=== PATIENT | female | born 1960 | race Caucasian/White ===

== ENCOUNTER → 2020-09-03 09:31 | Outpatient (CLI) | payer OTHER, SELFPAY ==
--- NOTE | ~2020-09-03 | XR_ITS ---
EXAMINATION: XR knee RT min 4V DATE: 09/03/2020 11:51 INDICATION: Osteoarthritis of right knee with effusion. Right knee pain. TECHNIQUE: 4 views of right knee standing were obtained. COMPARISON: None. FINDINGS: There is varus angulation of the knee. No fracture. There is severe osteoarthritis of media l compartment, mild osteoarthritis of lateral compartment, and moderate osteoarthritis of patellofemo ral compartment. There is a moderate-sized knee joint effusion. IMPRESSION: 1. Severe right knee osteoarthritis. 2. Moderate-sized right knee joint effusion. Reviewed, dictated and finalized at location A.
== END ==
PROVIDERS: PCP Family Medicine Adolescent Medicine; Visit Provider Family Medicine Adolescent Medicine
DX: M17.11 Unilateral primary osteoarthritis, right knee (principal); M25.461 Effusion, right knee
CPT/HCPCS: 73564

== ENCOUNTER → 2022-01-27 08:44 | Outpatient (CLI) | payer OTHER, SELFPAY ==
--- NOTE | ~2022-01-27 | MM_ITS ---
EXAMINATION: MM screening [facility] BI w chance HISTORY: Screening mammogram TECHNIQUE: Craniocaudal and mediolateral oblique 3-D tomosynthesis images were obtained and synthetic 2-D images were generated. CAD analysis was submitted and interpreted. COMPARISON: 04/04/2017, 02/15/2017 BREAST PARENCHYMAL COMPOSITION: The breasts are extremely dense, which lowers the sensitivity of mamm ography. FINDINGS: No suspicious mass, calcification, or architectural distortion are identified in either [place] ast to suggest malignancy. There has been no suspicious interval change. IMPRESSION: 1. No mammographic evidence of malignancy. 2. Recommend routine screening mammography in one year. BI-RADS Category 1: Negative Reviewed, dictated and finalized at location A. 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
== END ==
PROVIDERS: PCP Family Medicine Adolescent Medicine; Visit Provider Obstetrics & Gynecology
DX: Z12.31 Encounter for screening mammogram for malignant neoplasm of breast (principal)
CPT/HCPCS: 77063; 77067

== ENCOUNTER 2023-05-24 12:19 | Outpatient (CLI) | payer OTHER, SELFPAY ==
--- NOTE | ~2023-05-24 | MM_ITS ---
EXAMINATION: MM screening [facility] BI w chance HISTORY: Screening TECHNIQUE: Craniocaudal and mediolateral oblique 3-D tomosynthesis images were obtained and synthetic 2-D images were generated. CAD analysis was submitted and interpreted. COMPARISON: 01/27/2022 BREAST PARENCHYMAL COMPOSITION: Dense: The breasts are extremely dense, which lowers the sensitivity of mammography.. FINDINGS: There is no evidence of suspicious mass, calcification, or architectural distortion to sugg est malignancy in either breast. There has been no suspicious interval change. IMPRESSION: 1. No mammographic evidence of malignancy. 2. Recommend routine screening mammography in one year. BI-RADS Category 1: Negative Reviewed, dictated and finalized at location A.
== END 2023-05-24 12:20 ==
LOC: MICIMG 12:21
PROVIDERS: PCP Obstetrics & Gynecology; Visit Provider Obstetrics & Gynecology
DX: Z12.31 Encounter for screening mammogram for malignant neoplasm of breast (principal)
CPT/HCPCS: 77063; 77067

== ENCOUNTER 2024-07-27 07:15 | Outpatient (CLI) | payer OTHER, SELFPAY ==
--- NOTE | ~2024-07-27 | MM_ITS ---
EXAMINATION: MM screening [facility] BI w chance HISTORY: Screening TECHNIQUE: Craniocaudal and mediolateral oblique 3-D tomosynthesis images were obtained and synthetic 2-D images were generated. CAD analysis was submitted and interpreted. COMPARISON: 05/24/2023 through 02/15/2017. BREAST PARENCHYMAL COMPOSITION: The breasts are extremely dense, which lowers the sensitivity of mamm ography. FINDINGS: There is no evidence of suspicious mass, calcification, or architectural distortion to sugg est malignancy in either breast. There has been no suspicious interval change. IMPRESSION: 1. No mammographic evidence of malignancy. 2. Recommend routine screening mammography in one year. BI-RADS Category 1: Negative Reviewed, dictated and finalized at location B.
== END 2024-07-27 07:16 | disposition home or self-care (01) ==
LOC: MICIMG 07:16
PROVIDERS: PCP Family Medicine Adolescent Medicine; Visit Provider Obstetrics & Gynecology
DX: Z12.31 Encounter for screening mammogram for malignant neoplasm of breast (principal)
CPT/HCPCS: 77063; 77067

== ENCOUNTER 2024-11-04 16:38 | Emergency (ER) | payer OTHER, SELFPAY ==
--- NOTE | ~2024-11-04 | XR_ITS ---
EXAMINATION: XR hand RT min 3V, 11/04/2024 17:18 CDT HISTORY: hand/finger injury COMPARISON: No comparisons available. Findings: Slightly displaced fracture of the proximal phalanx third digit. Moderate degenerative changes of the distal interphalangeal joints. Soft tissue swelling. Impression: Fracture detailed above Reviewed, dictated and finalized at location A. Impression: Fracture detailed above
--- OUTSIDE RECORDS SUMMARY | 2024-11-04 16:42 | XMS_ITS | Clinical Summary ---
Author Organization [facility] Address [address] [place] [address] Care Team Providers Care Bucket Operator Name Role Phone Raj Kirby MD Primary Care Prov ider Allergies No known active allergies Medications predniSONE (DELTASONE) 10 mg tablet 0 9 Active fluticasone propionate (FLONASE) 50 mcg/actuation nasal sprayIndication s:Acute otitis media with effusion of left ear Administer 2 sprays into each nostril 2 (two) times a day 16 g 11 9 Active Active Problems Problem Noted Date Diagnosed Date Acute otitis media with effusion of left ear Assessment & Plan (03/05/2019 10:52 AM SEWER CONTRACTOR): Avoid ear cleaning techniques, if ears feel full or hearing loss occurs, please call Assessment & Plan (02/08/2019 9:26 AM SEWER CONTRACTOR): Cefdinir with a meal daily Probiotic at a different meal Flonase 2 sprays into each nostril while looking down over the sink, do not sniff in or blow nose after use twice daily Call if need for Diflucan occurs Follow up in 3-4 weeks with Hearing test right before follow up consider ear tube if no improvement in left ear effusion Lumbago 04/04/2013 Pain of lower extremity 04/04/2013 Immunizations Immunization Administration Dates Next Due Influenza, Trivalent, Preservative Free, Intramu scular 01/11/2013 Surgical History Surgery Date Site/Laterality Comments FOOT SURGERY Foot Surgery - (Added by TW Conv) Family History Medical History Relation Name Comments Colon cancer Other 1 Family history of colon cancer - Relation: Grandmother (Added by TW Conv) Colon cancer Other 2 Family history of colon cancer - Relation: Uncle (Added by TW Conv) Relation Name Status Comments Other 1 Other 2 Social History Tobacco Use Types Packs/Day Years Used Date Smoking Tobacco: Every Day Smokeless Tobacco: Former Comments:Cigars Alcohol Use Standard Drinks/Week Comments Not Currently 0 (1 standard drink = 0.6 oz pur e alcohol) Personal Safety Answer Date Recorded Getting School Help Needed Not on file 05/06 Comments Unknown Sex and Gender Information Value Date Recorded Sex Assigned at Not on file Legal Sex Female 4:56 AM SEWER CONTRACTOR Gender Identity Not on file Sexual Orientation Not on file Obstetrics History Last Filed Vital Signs Vital Sign Reading Time Taken Comments Blood Pressure 114/76 03/05/2019 10:39 AM SEWER CONTRACTOR Pulse 66 03/05/2019 10:39 AM SEWER CONTRACTOR Temperature 36.7 C (98 F) 03/05/2019 10:39 AM SEWER CONTRACTOR Respiratory Rate - - Oxygen Saturation 100% 06/16/2016 2:17 PM CDT Inhaled Oxygen Concentration - - Weight 73 kg (161 lb) 03/05/2019 10:39 AM SEWER CONTRACTOR Height 167.6 cm (5' 6) 03/05/2019 10:39 AM SEWER CONTRACTOR Body Mass Index 25.99 03/05/2019 10:39 AM SEWER CONTRACTOR Plan of Treatment Not on file Insurance [facility] AETNA SIGNATURE AETNA SIG [id number] Care Teams Bucket Operator Relationship Specialty Start Date End Date Raj Kirby MD PCP - General Family Medicine 02/06/19
--- OUTSIDE RECORDS SUMMARY | 2024-11-04 16:42 | XMS_ITS | Clinical Summary ---
Author Organization [facility] Address [address] [place] [address] Care Team Providers Care Hide Selector Name Role Phone Raj Kirby MD Primary Care Provider + Source Comments [facility],non-owned Affiliates and Associated Physician Practices is amultiple site organization consisting of ambulatory clinics and hospital sitesin [place], [place], [place] and [place]. This disclosure is being madepursuant to the Care Everywhere program and may not contain all information available regarding this patient. Last updated 17.[facility] Allergies No known active allergies Medications * Be aware that medications may not be up to date on this document. Alwaysverify current medications with the patient. aspirin-acetami nophen-caffeine 250-250-65 MG tablet Take 2 tablets by mouth once daily Active ibuprofen (MOTRIN) 800 MG tablet Take 800 mg by mouth every 6 hours as needed for Pain Active cefdinir (OMNICEF) 300 MG capsule 02/08/2019 Active SUMAtriptan (IMITREX) 20 MG/ACT nasal spray U 1 SPRAY IN 1 NOS FOR MIGRAINE DIRECTED 09/19/2018 Active Active Problems No known active problems Social History Tobacco Use Types Packs/Day Years Used Date Smoking Tobacco: Every Day Smokeless Tobacco: Never Comments Unknown Sex and Gender Information Value Date Recorded Sex Assigned at Not on file Legal Sex Female 9:43 AM PHYSICIAN UNDERWRITER Gender Identity Not on file Sexual Orientation Not on file Last Filed Vital Signs Vital Sign Reading Time Taken Comments Blood Pressure - - Pulse - - Temperature - - Respiratory Rate - - Oxygen Saturation - - Inhaled Oxygen Concentration - - Weight 74.4 kg (164 lb) 04/26/2019 8:30 AM PHYSICIAN UNDERWRITER Height 167.6 cm (5' 6) 04/26/2019 8:30 AM PHYSICIAN UNDERWRITER Body Mass Index 26.47 04/26/2019 8:30 AM PHYSICIAN UNDERWRITER Plan of Treatment Health Maintenance Due Date Last Done Comments COLOGUARD (AGES 45-75) - COL ON CA SCREENING 1960 COLON MONITORING 1960 COLONOSCOPY - COLON CA SCREENING 1960 CT COLONOGRAPHY - COLON CA SCREENING 1960 Colorectal Cancer Screening 1960 FIT - COLON CA SCREENING 1960 FLEX SIG - COLON CA SCREENING 1960 LIPID TESTING 1960 MAMMOGRAM 1960 HIV SCREENING 10/09/1975 HEPATITIS C SCREENING 10/04/1978 DTAP/TDAP/TD VACCINES (1 - Tdap) 10/09/1979 PNEUMOCOCCAL VACCINE 50+ (1 of 1 - PCV) 2010 ZOSTER VACCINE (1 of 2) 2010 SCREENING FOR DIABETES 04/26/2019 DEPRESSION SCREENING 02/22/2024 COVID-19 VACCINE (1 - 2023-2 5 season) 2024 INFLUENZA VACCINE (#1) 2024 01/11/2013 Respiratory Syncytial Virus (RSV) Vaccine Pt: or over 60 yrs (1 - 1-dose 75+ series) 10/09/2035 HEPATITIS B VACCINE Aged Out No longe r eligible based on patient's age to complete this topic HIB VACCINE Aged Out No longer eligi ble based on patient's age to complete this topic HPV VACCINE Aged Out No longer eligi ble based on patient's age to complete this topic MENINGOCOCCAL (Group B) VACC INE SHARED DECISION-MAKING Aged Out No longer eligibl e based on patient's age to complete this topic MENINGOCOCCAL GROUPS A/C/Y/W VACCINE Aged Out No longer eligible b ased on patient's age to complete this topic Insurance AETNA AETNA Care Teams Hide Selector Relationship Specialty Start Date End Date Raj Kirby MD [address] [address] PCP - General 03/02/19
--- OUTSIDE RECORDS SUMMARY | 2024-11-04 16:42 | XMS_ITS | Clinical Summary ---
Author Organization [facility] Address Formerly [facility] [place] [address] Care Team Providers Care Compliance Program Manager Name Role Phone Raj Kirby MD Primary Care Provider [phone] Christofer Voss DPM Unavailable [phone] Allergies No known active allergies Medications etodolac 500 MG tablet Take 500 mg by mouth 2 (two) times daily as needed. 0 Active TURMERIC OR Take 2 tablets by mouth daily. Active MAGNESIUM OR Take 2 tablets by mouth daily. Magnesium L- Threonate Active probiotic capsule Take 1 capsule by mouth daily with breakfast. Active aspirin-acetami nophen-caffeine 250-250-65 MG tablet Take 2 tablets by mouth nightly. Active hydrocodone-leopoldo taminophen 5-325 MG tabletIndicatio ns:Acute Pain < 7 Day Supply Take 1 tablet by mouth every 6 (six) hours as needed for Pain. Indications: Acute Pain < 7 Day Supply 20 tablet 0 Active ibuprofen 800 MG tablet Take 1 tablet (800 mg total) by mouth every 8 (eight) hours as needed for Pain. 30 tablet 0 Active Social History Tobacco Use Types Packs/Day Years Used Date Smoking Tobacco: Some Days Cigars Smokeless Tobacco: Never Comments:4 mini cigars per d ay Alcohol Use Standard Drinks/Week Comments Yes 2 (1 standard drink = 0.6 oz pur e alcohol) Comments No Sex and Gender Information Value Date Recorded Sex Assigned at Not on file Legal Sex Female 7:05 PM CDT Gender Identity Not on file Sexual Orientation Not on file Last Filed Vital Signs Vital Sign Reading Time Taken Comments Blood Pressure 117/68 04/03/2019 10:36 AM REHABILITATION ENGINEER Pulse 55 04/03/2019 10:36 AM REHABILITATION ENGINEER Temperature 36.4 C (97.6 F) 04/03/2019 10:36 AM REHABILITATION ENGINEER Respiratory Rate 20 04/03/2019 10:36 AM REHABILITATION ENGINEER Oxygen Saturation 99% 04/03/2019 10:36 AM REHABILITATION ENGINEER Inhaled Oxygen Concentration - - Weight 71.9 kg (158 lb 8.2 oz) 04/03/2019 6:25 A M REHABILITATION ENGINEER Height 167.6 cm (5' 6) 04/03/2019 6:25 AM REHABILITATION ENGINEER Body Mass Index 25.58 04/03/2019 6:25 AM REHABILITATION ENGINEER Plan of Treatment Health Maintenance Due Date Last Done Comments Cervical Cancer Screening Pa p Smear (Age 30 to 64) Every 3 Years 1960 Colorectal Cancer Screening Colonoscopy (10 Years) 1960 Annual Physical 10/09/1963 Hepatitis C 1978 DTaP, Tdap and Td Vaccines ( 1 - Tdap) 10/09/1979 Pneumococcal Vaccine: 50+ Ye ars (1 of 2 - PCV) 10/09/1979 Cervical Cancer Screening Pa p with HPV Testing (Age 30 to 64) Every 5 Years 1990 Cervical Cancer Screening with HPV 1990 Mammogram Screening 2000 Zoster Vaccines (1 of 2) 2010 COVID-19 Vaccine (2023-2 5 season) 2024 RSV Immunization or 60+ Years (1 - 1-dose 75+ series) 10/09/2035 Meningococcal B Vaccine Aged Out No l onger eligible based on patient's age to complete this topic Meningococcal Vaccine Aged Out No beto keila eligible based on patient's age to complete this topic RSV Immunizations Under 20 Months Aged Out No longer eligible based on patient's age to complete this topic Medical Devices Implanted Type Area Wind Turbine Design Engineer Device Identifier Shelf Expiration Date Model / Serial / Lot Fuseforce Nitinol Staple Kit Implanted:Qty: 2 on 04/03/2019 by Christofer Voss DPM at [facility] Right: Foot Sano 04/11/2023 [id number] / / [id number] Medium Phalinx Implant Implanted:Qty: 1 on 04/03/2019 by Christofer Voss DPM at [facility] Right: Foot [employer] [id number] / / Snap Off Screw 2.0 X 12mm Implanted:Qty: 1 on 04/03/2019 by Christofer Voss DPM at [facility] Right: Foot [employer] [id number] / / 1.1mm K-Wire Implanted:Qty: 1 on 04/03/2019 by Christofer Voss DPM at [facility] Right: Foot [employer] [id number] / / Insurance Care Teams Compliance Program Manager Relationship Specialty Start Date End Date Raj Kirby MD [address] [place] [id number] PCP - General FAMILY PRACTICE 03/26/19 Christofer Voss DPM [address] [address] Referring Physician PODIATRY/SURGERY 03/27/19
[2024-11-04 16:48] VITALS: BP 97/70; PULSE 85; RESP 18; TEMP 36.6; O2SAT 96
--- NOTE | 2024-11-04 17:46 | ED.UPPEXIN ---
HPI - Extremity Injury (Upper) General Chief Complaint: Extremity Injury, Upper Stated Complaint: right hand finger injury Time Seen by Provider: 11/04/24 17:00 Source: patient Mode of arrival: ambulatory Limitations: no limitations History of Present Illness HPI narrative: Billy is a 64-year-old female patient presenting to the clinic today with complaints of a right hand middle finger injury that occurred on . She reports she was riding her medial and fell off and injured her finger. Has been resting, icing, and had the finger splinted. Finger is bruised and swollen. Is concerned that it may be broken. Related Data Home Medications ?Medication ?Instructions ?Recorded ?Confirmed ?Last Taken ?Type No Home Medications 11/04/24 11/04/24 Unknown History Allergies Allergy/AdvReac Type Severity Reaction Status Date / Time No Known Allergies Allergy Mild Verified 11/04/24 17:02 ON LICENSE OF [facility] Past Medical History Medical History History of osteoporosis Surgical History Surgical History History of back surgery (~2013) 2014 bulging disc. History of foot surgery (Unknown) total of 5 foot surgeries. Bone Spur, bunions, mortans, euroma, Hammer Aristides. History of tubal ligation (~1989) Family History Family History Unknown No problems noted. Grandparent Acute myocardial infarction Other Carcinoma of colon Grandparent Carcinoma of colon Father Diabetes mellitus Other Arthritis Social History Social History Smoking status: Current every day smoker Tobacco type: cigars Second hand tobacco smoke exposure: No Alcohol intake: current Drinks per week: 2 Alcohol use details: 2 drinks a week. Substance use: never Substance use type: does not use Do You Feel Safe in your Home?: Yes Lack of Transportation: No Lack of Food: Never True Current Housing: I Have Housing Concerned About Future Housing: No Difficulty Paying Gas/Electric Bills: No Difficulty Paying for Meds: No Currently Unemployed: No Education: Trade/Vocational Certificate Difficulty w/ Childcare or Family Care: No Living arrangements: with family Occupation/Education: retired Gender identity (if verbalized by the patient): Female Sexual Orientation (if Verbalized by the Patient): Straight or Heterosexual Spiritual care concerns: No Agree to blood products: Yes Comments At the time of my signature, I reviewed and agree with the nursing past medical, surgical, social, and family history. There is no relevant family history pertinent to the patient complaint. Exam Narrative: General: Well-developed, well nourished, in no apparent distress Head: Normocephalic, atraumatic. Cardio: Regular rate and rhythm, s1 and s2 normal, no murmur appreciated. Resp: Clear to auscultation bilaterally, no rhonchi, rales, wheezing or rubs. Musculoskeletal: No deformity, bruised and swelling of the right 3rd finger that is extending into the distal hand, tender to palpation over the right proximal 3rd finger, limited range of motion due to pain and swelling, muscle strength strong and equal, peripheral pulse strong, no edema, no cyanosis, normal gait and station Course Course Emergency Course: Portions of this record may have been created with voice recognition software. Level of Care: Express Care Visit Vital Signs Vital signs: Vital Signs Temperature 36.6 C 11/04/24 16:48 Pulse Rate 85 11/04/24 16:48 Respiratory Rate 18 11/04/24 16:48 Blood Pressure 97/70 L 11/04/24 16:48 Pulse Oximetry 96 11/04/24 16:48 Oxygen Delivery Room Air 11/04/24 16:48 Temperature 36.6 C 11/04/24 16:48 Pulse Rate 85 11/04/24 16:48 Respiratory Rate 18 11/04/24 16:48 Blood Pressure 97/70 L 11/04/24 16:48 Pulse Oximetry 96 11/04/24 16:48 Oxygen Delivery Room Air 11/04/24 16:48 Vital signs reviewed MDM - Extremity Injury (Upper) MDM Narrative Medical decision making narrative: At the time of visit patient is resting comfortably on the exam table. Patient appears to be nontoxic. Complaints of a right hand middle finger injury that occurred on . She reports she was riding her medial and fell off and injured her finger. Has been resting, icing, and had the finger splinted. Finger is bruised and swollen. Is concerned that it may be broken. On exam patient has bruising and swelling of the right 3rd finger that is extending into the distal hand, tender to palpation over the right proximal 3rd finger, limited range of motion due to pain and swelling, Right hand x-ray was ordered. Diagnostics: X-ray of the right 3rd finger was performed. X-ray shows a slightly displaced closed right 3rd proximal phalanx fracture. Plan: Patient has slightly displaced proximal right 3rd finger fracture. Metal finger splint was applied. Recommend follow-up with Dr. Fields. Contact his office in the morning to schedule appointment. Supportive measures were discussed with the patient and they voiced understanding discharge instructions and agrees to treatment plan. Return precautions reviewed Differential Diagnosis Differential diagnosis: Likely finger sprain, dislocation of finger and other (finger fracture) Imaging Data Radiologist's impression: ITS Impressions Hand X-Ray 11/04/24 17:32 Impression: Fracture detailed above Discharge Plan Discharge Clinical Impression: Fracture of proximal phalanx of finger Qualifiers: Encounter type: initial encounter Finger: middle finger Fracture type: closed Fracture alignment: displaced Laterality: right Qualified Code(s): S62.612A - Displaced fracture of proximal phalanx of right middle finger, initial encounter for closed fracture Patient Disposition: Home Condition: Stable Instructions: Antibiotic Form, Finger Fracture (ED) Additional Instructions: X-ray shows a closed nondisplaced right 3rd proximal phalanx fracture Rest, ice, elevate, and wear metal finger splint as discussed May remove metal finger splint to shower and then reapply. Tylenol/motrin for pain as discussed. Follow up with your PCP if symptoms persist more than 1 week. Follow-up with Dr. Fields- call office on Tuesday to schedule an appointment. Patient Language: Tamazight Prescriptions: No Action No Home Medications Follow-up/Referrals: Vivian Fields MD [Physician, Plastic Surgery] - 1 Day Referral Note: Closed nondisplaced right 3rd proximal phalanx fracture Clinical Impression: Fracture of proximal phalanx of finger Raj Kirby MD [Primary Care Provider, [facility]] Time of Disposition: 17:42 Quality NIHSS Nursing Documentation ED NIHSS nursing documentation: reviewed/agree
== END 2024-11-04 17:54 | disposition home or self-care (01) ==
PROVIDERS: Emergency Provider Nurse Practitioner Family; PCP Family Medicine Adolescent Medicine
DX: S62.612A Displaced fracture of proximal phalanx of right middle finger, initial encounter for closed fracture (principal); W19.XXXA Unspecified fall, initial encounter; F17.290 Nicotine dependence, other tobacco product, uncomplicated; M81.0 Age-related osteoporosis without current pathological fracture
CPT/HCPCS: 29130; 73130; 99214; G0463

== ENCOUNTER 2024-11-08 00:37 | Day surgery (SDC) | payer OTHER, SELFPAY ==
[2024-11-07 09:23] VITALS: BMI 23.4
--- NOTE | 2024-11-07 09:24 | PC.NURSE ---
Report to the Outpatient Waiting Room, entrance under the green pavilion located off [facility], at time _1115_ on date _[id number]_. Planned Procedure Time: 115pm__.? Time changes happen often and if your time is changed the preop area will call you the afternoon before. - You and your visitor will be asked to self-screen and do not enter if you have any COVID symptoms. Please call surgeon if you need to reschedule. - A mask is optional within the hospital at this time. Patients may have clear liquids (water, carbonated beverages, clear teas, apple juice) until 515am prior to surgery with a maximum of 20 ounces. Nothing to drink after 515am. - No food from midnight until time of surgery and no smoking, or chewing tobacco (or any form of nicotine). No chewing gum, candy or mints. Take only the following medications with a SIP of water on the morning of surgery: __None__Acetaminophen OK if need something for pain. DO NOT STOP ANY OF YOUR OTHER PRESCRIPTION MEDICATIONS PRIOR TO SURGERY EXCEPT THE FOLLOWING Hold all vitamins and supplements for 3 days per anesthesiologist. Medications to discontinue per physician Date to take last dose Please no make-up, nail persian, hairspray, perfume, deodorant, or body powder the day of surgery.? No jewelry (including any body piercings) or valuables the day of surgery, leave them at home.? Please take a shower or bath the night before, or the morning of, surgery with an antibacterial soap.? Wear comfortable, loose fitting clothing.? - Jewelry must be removed prior to entering the operating room.? Rings and piercings that are not removed may be cut off. - The hospital will not accept responsibility for valuables.? - Please leave all valuables, including medications, at home the day of surgery. If you are going home after surgery, a licensed substitute bus driver must drive you home.? - NO public transportation without another adult if you receive anesthesia. - We recommend that an adult stay with you for 24 hours following discharge. - We also recommend that you do not drive, make important decision, drink alcoholic beverages, or take any drugs that were not prescribed by your health care provider for at least 24 hours after your discharge time. Follow any additional instructions given to you from your surgeon. Telephone instructions given to __Marti__and asked if any additional questions and then verbalized understanding. Patient advised to call surgeon office or pre surgery nurse liaison [phone] if any additional questions.
--- NOTE | ~2024-11-08 | XR_ITS ---
EXAMINATION: XR surgery orthopedic DATE: 11/08/2024 15:05 INDICATION: Fixation of a fracture of the third proximal phalanx TECHNIQUE: 4 fluoroscopic images of the third digit at the right hand were obtained during procedure performed by Dr. Fields. Radiologist was not present for the imaging or procedure. The amount of fluoroscopy time used during this procedure was 0.2 minutes. Total DAP was 0.0535 Gycm^2. COMPARISON: Right hand radiographs dated 11/04/2024 FINDINGS: Images demonstrate percutaneous pin fixation spanning an oblique extra articular fracture of the right third proximal phalanx. On the dorsal palmar projection. No significant change in the approximately 2 mm separation of the fracture margins. Final image and lateral projection demonstrate a pair of additional likely percutaneous pins extending across the midportion of the diaphysis which appear likely foreshortened due to the plane of projection. No new fractures identified. 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 IMPRESSION: 1. Fluoroscopy utilized during percutaneous pin fixation of an oblique extra articular fracture of the third proximal phalanx. See procedure note for further detail. Reviewed, dictated and finalized at location A. IMPRESSION: 1. Fluoroscopy utilized during percutaneous pin fixation of an oblique extra ar ticular fracture of the third proximal phalanx. See procedure note for further detail.
--- OUTSIDE RECORDS SUMMARY | 2024-11-08 00:40 | XMS_ITS | Clinical Summary ---
Author Organization [facility] Address [address] [place] [address] Care Team Providers Care Chinese Teacher Name Role Phone Raj Kirby MD Primary Care Provider + Source Comments [facility],non-owned Affiliates and Associated Physician Practices is amultiple site organization consisting of ambulatory clinics and hospital sitesin [place], [place], [place] and [place]. This disclosure is being madepursuant to the Care Everywhere program and may not contain all information available regarding this patient. Last updated 17.[facility] Allergies No known active allergies Medications * [...] on file Legal Sex Female 9:43 AM CASSANDRA ARCHITECT Gender Identity Not on file Sexual Orientation Not on file Last Filed Vital Signs Vital Sign Reading Time Taken Comments Blood Pressure - - Pulse - - Temperature - - Respiratory Rate - - Oxygen Saturation - - Inhaled Oxygen Concentration - - Weight 74.4 kg (164 lb) 04/26/2019 8:30 AM CASSANDRA ARCHITECT Height 167.6 cm (5' 6) 04/26/2019 8:30 AM CASSANDRA ARCHITECT Body Mass Index 26.47 04/26/2019 8:30 AM CASSANDRA ARCHITECT Plan of Treatment Health Maintenance Due Date [...] this topic Insurance AETNA AETNA Care Teams Chinese Teacher Relationship Specialty Start Date End Date Raj Kirby MD [address] [address] PCP - General 03/02/19
--- OUTSIDE RECORDS SUMMARY | 2024-11-08 00:40 | XMS_ITS | Clinical Summary ---
Author Organization [facility] Address [facility] [place] [address] Care Team Providers Care Livestock Farmer Name Role Phone Raj Kirby MD Primary Care Provider [phone] Christofer Voss DPM Unavailable [phone] Allergies No known active allergies Medications [...] Comments Blood Pressure 117/68 04/03/2019 10:36 AM JOURNEYMAN MEAT CUTTER Pulse 55 04/03/2019 10:36 AM JOURNEYMAN MEAT CUTTER Temperature 36.4 C (97.6 F) 04/03/2019 10:36 AM JOURNEYMAN MEAT CUTTER Respiratory Rate 20 04/03/2019 10:36 AM JOURNEYMAN MEAT CUTTER Oxygen Saturation 99% 04/03/2019 10:36 AM JOURNEYMAN MEAT CUTTER Inhaled Oxygen Concentration - - Weight 71.9 kg (158 lb 8.2 oz) 04/03/2019 6:25 A M JOURNEYMAN MEAT CUTTER Height 167.6 cm (5' 6) 04/03/2019 6:25 AM JOURNEYMAN MEAT CUTTER Body Mass Index 25.58 04/03/2019 6:25 AM JOURNEYMAN MEAT CUTTER Plan of Treatment Health Maintenance Due Date [...] this topic Medical Devices Implanted Type Area Cap Blocker Device Identifier Shelf Expiration Date Model / Serial / Lot Fuseforce Nitinol Staple Kit Implanted:Qty: 2 on 04/03/2019 by Christofer Voss DPM at [facility] Right: Foot [employer] 04/11/2023 [id number] / / [id number] Medium Phalinx Implant Implanted:Qty: 1 on 04/03/2019 by Christofer Voss DPM at [facility] Right: Foot [employer] [id number] / / Snap Off Screw 2.0 X 12mm Implanted:Qty: 1 on 04/03/2019 by Christofer Voss DPM at [facility] Right: Foot [employer] [id number] / / 1.1mm K-Wire Implanted:Qty: 1 on 04/03/2019 by Christofer Voss DPM at [facility] Right: Foot [employer] [id number] / / Insurance Care Teams Livestock Farmer Relationship Specialty Start Date End Date Raj Kirby MD [address] [place] [id number] PCP - General FAMILY PRACTICE 03/26/19 Christofer Voss DPM [address] [address] Referring Physician PODIATRY/SURGERY 03/27/19
--- NOTE | 2024-11-08 06:58 | WPDHPUPDATE1 ---
History and Physical Update Update Date/Time: 11/08/24 06:58 Patient seen and examined in pre-operative holding area. No interval change in medical history or symptoms. Patient recalls previous discussion of benefits and alternatives to procedure. Continues to desire to proceed with closed possible open reduction and pinning right middle finger proximal phalanx fracture . Reviewed procedure, post-op expectations and risks including but not limited to bleeding, infection, injury to tendon/nerve/vessel, decreased hand function, stiffness, RSD, no change or worsening of symptoms, malunion, nonunion. I discussed the possible use of assistants and their participation in the case. Patient stated understanding and signed the consent form wishing to proceed.
--- NOTE | 2024-11-08 06:58 | W.PM.PROC2 ---
Procedure Note - Detailed Date of Procedure 11/08/24 Pre-op Diagnosis fx proximal phalanx right middle finger Post-op Diagnosis Same Procedure Performed right middle finger p1 crpp Surgeon Vivian Fields MD Animal Treatment Investigator ml newman pa-c Anesthesia MAC Description of Procedure INFORMED CONSENT: The patient was seen and examined and marked in the pre-op area.? The patient signed the consent form. PROCEDURE IN DETAIL:The patient taken back to OR on the stretcher in supine position. Time out performed with anesthesia, surgeon and staff agreeing on patient's name site and surgery to be performed SCDs were placed on the lower extremities and inflated. A tourniquet was placed on {right} upper extremity and antibiotics given IV After anesthesia administered sedation I injected {4}cc 1%lido with epi and 0.5% marcaine plain for digital block in the palm The?{right upper extremity}?was prepped and draped in sterile fashion the??{right upper extremity} was? exsanguinated with Esmarch bandage and tourniquet inflated to 250mmHg C-arm was draped and brought into the field. Closed reduction maneuvers were performed noting the ability to achieve adequate reduction of the fracture. I proceeded with placing a 0.045 K-wires in an anterograde crossing fashion across the fracture. Wire placement was verified and multiple views of fluoroscopy and noting adequate reduction of the fracture. I proceeded with placeing two more 0.045 k-wires in ulnar to radial direction perpendicular to fracture to improve compression. multiple views of fluoro verified placement and reduction. There was no scissoring to the digit. The pin sites were trimmed appropriately. A dressing of betadine soaked alcohol swabs were placed around the pins then, 4x4, balaji, and a dorsal splint in safe position was applied for patient safety, security, and comfort and secured with an leopoldo bandage after the tourniquet was let down noting the hand was warm and well perfused. The patient was then awaken from anesthesia and transferred to the recovery room in stable condition.? Complications - none EBL- 0cc Disposition - home in stable condition Ml Newman PA-C was essential for positionig, retraction, closure and dressing placement [facility] Billing Surgery - Charge Forward: Surgery Billing ([id number] for ml)
[2024-11-08 12:00] VITALS: BP 120/62; PULSE 70; RESP 16; TEMP 36.5; O2SAT 97
[2024-11-08] MEDS: LACTATED RINGERS 1,000 ML 30 ML IV CONT (12:00)
[2024-11-08] MEDS: ACETAMINOPHEN 500 MG TABLET 1000 MG PO (12:00)
--- NOTE | 2024-11-08 13:28 | WPDANESEPPF ---
Anes - Initial Pre Proc Eval Procedure: Operation Date: 11/08/24 13:15 Proposed Procedures p Right Middle Finger Closed Reduction Percutaneous Pinning, Possible Open Reduction Internal Fixation - Vivian Fields MD Date/Time: 11/08/24 13:28 Surgeon: Vivian Fields MD Pre Op Diagnosis: fx proximal phalanx right middle finger Patient Data Age: 64 Gender: F Height: 1.68 m Weight: 65.9 kg Allergies Allergy/AdvReac Type Severity Reaction Status Date / Time No Known Allergies Allergy Mild Verified 11/07/24 09:09 Home Medications ?Medication ?Instructions ?Recorded ?Confirmed ?Type calcium 500 mg (as 3 tablet PO DAILY 11/07/24 11/07/24 History carbonate)-vitamin D3 3.125 mcg (125 unit) tablet magnesium carb,citrate,oxide 500 mg PO DAILY 11/07/24 11/07/24 History (Magnesium Complex) cephalexin 500 mg capsule 500 mg PO Q12H #14 caps 11/08/24 Rx hydrocodone 5 mg-acetaminophen 325 1 tablet PO Q6H PRN pain #12 tabs 11/08/24 Rx mg tablet Patient hx anesthesia problems: post op nausea/vomiting Family hx anesthesia problems: none Results Review: All pre-operative results and documents have been reviewed as part of the pre-operative evaluation. [facility] Past Medical History Medical History History of osteoporosis Surgical History Surgical History History of tubal ligation (~1989) History of back surgery (~2013) 2014 bulging disc. History of foot surgery (Unknown) total of 5 foot surgeries. Bone Spur, bunions, mortans, euroma, Hammer Aristides. Family History Family History Unknown No problems noted. Grandparent Acute myocardial infarction Other Carcinoma of colon Grandparent Carcinoma of colon Father Diabetes mellitus Other Arthritis Social History Social History Smoking status: Current every day smoker Tobacco type: cigars Second hand tobacco smoke exposure: No Additional smoking assessment comments: Little bitty and 5 a day for 10 years. Alcohol intake: current Drinks per week: 5 Alcohol use details: 2 drinks a week. Substance use: never Substance use type: does not use Do You Feel Safe in your Home?: Yes Lack of Transportation: No Lack of Food: Never True Current Housing: I Have Housing Concerned About Future Housing: No Difficulty Paying Gas/Electric Bills: No Difficulty Paying for Meds: No Currently Unemployed: No Education: Trade/Vocational Certificate Difficulty w/ Childcare or Family Care: No Living arrangements: with family Occupation/Education: retired Gender identity (if verbalized by the patient): Female Sexual Orientation (if Verbalized by the Patient): Straight or Heterosexual Spiritual care concerns: No Agree to blood products: Yes Anes - Eval Final PreProcedure Day of Procedure 11/08/24 13:28 Patient weight: normal Lungs: normal air movement Airway: Mallampati scale class II and special considerations Neurological: alert and oriented Last oral intake: >/= 8 hours ASA classification: II Emergent: no Anesthetic plan: proceed Anesthesia type and monitoring: general GIVS and standard monitoring Results Review: All pre-operative results and documents have been reviewed as part of the pre-operative evaluation. FELY on CPAP, migrane hx. Informed Consent: The patient's anesthetic plan and its attendant risks and benefits were discussed with the patient/family/POA. Questions were solicited and answers provided to the satisfaction of the patient/family/POA.
[2024-11-08] MEDS: SCOPOLAMINE 1 MG PATCH 1 PATCH TRANSDERM (13:40)
[2024-11-08] MEDS: ceFAZolin 2 GM in SODIUM CHLORIDE 0.9% IV 50 ML 100 ML IVPB (14:33)
[2024-11-08] MEDS: LIDOCAINE 1% LOCAL INJ 10 ML VIAL 5 ML INFILTRATE (14:48)
[2024-11-08 15:05] VITALS: BP 96/60; PULSE 63; RESP 18; O2SAT 94
[2024-11-08 15:35] VITALS: BP 114/66; PULSE 56
[2024-11-08] MEDS: oxyCODONE HCL (*CRX) 5 MG TAB IR PO (15:35)
[2024-11-08 16:05] VITALS: BP 134/81; PULSE 59
== END 2024-11-08 16:22 | disposition home or self-care (01) ==
PROVIDERS: PCP Family Medicine Adolescent Medicine; Visit Provider Plastic Surgery
PROC: (CPT 26727; principal; 2024-11-08 13:15)
DX: S62.612A Displaced fracture of proximal phalanx of right middle finger, initial encounter for closed fracture (principal); V80.010A Animal-rider injured by fall from or being thrown from horse in noncollision accident, initial encounter; M81.0 Age-related osteoporosis without current pathological fracture; G47.33 Obstructive sleep apnea (adult) (pediatric); F17.290 Nicotine dependence, other tobacco product, uncomplicated; Z79.891 Long term (current) use of opiate analgesic; Z99.89 Dependence on other enabling machines and devices; Z98.890 Other specified postprocedural states; Z98.1 Arthrodesis status; Z98.51 Tubal ligation status; Z80.0 Family history of malignant neoplasm of digestive organs; Z82.49 Family history of ischemic heart disease and other diseases of the circulatory system
CPT/HCPCS: 26727; 99199; J0690; A9270; C1713; J2003; J2704; J3010; J7120

== ENCOUNTER 2024-11-20 08:05 | Outpatient (CLI) | payer OTHER, SELFPAY ==
--- NOTE | ~2024-11-20 | XR_ITS ---
EXAMINATION: XR hand RT min 3V, 11/20/2024 8:15 CDT HISTORY: S62.612A - Displaced fracture of proximal phalanx of righ... COMPARISON: No comparisons available. Findings: Fixation of the proximal phalanx third digit with healing fractures. No significant degenerative changes. Soft tissues unremarkable. Impression: Post surgical changes Reviewed, dictated and finalized at location P. Impression: Post surgical changes
--- OUTSIDE RECORDS SUMMARY | 2024-11-20 08:16 | XMS_ITS | Clinical Summary ---
Author Organization [facility] Address [address] [place] [address] Care Team Providers Care Air Carrier Operations Inspector Name Role Phone Raj Kirby MD Primary [...] ear Assessment & Plan (03/05/2019 10:52 AM MANAGER TRAINEE): Avoid ear cleaning techniques, if ears feel full or hearing loss occurs, please call Assessment & Plan (02/08/2019 9:26 AM MANAGER TRAINEE): Cefdinir with a meal daily Probiotic at [...] on file Legal Sex Female 4:56 AM MANAGER TRAINEE Gender Identity Not on file Sexual Orientation Not on file Obstetrics History Last Filed Vital Signs Vital Sign Reading Time Taken Comments Blood Pressure 114/76 03/05/2019 10:39 AM MANAGER TRAINEE Pulse 66 03/05/2019 10:39 AM MANAGER TRAINEE Temperature 36.7 C (98 F) 03/05/2019 10:39 AM MANAGER TRAINEE Respiratory Rate - - Oxygen Saturation 100% 06/16/2016 2:17 PM CDT Inhaled Oxygen Concentration - - Weight 73 kg (161 lb) 03/05/2019 10:39 AM MANAGER TRAINEE Height 167.6 cm (5' 6) 03/05/2019 10:39 AM MANAGER TRAINEE Body Mass Index 25.99 03/05/2019 10:39 AM MANAGER TRAINEE Plan of Treatment Not on file Insurance [facility] AETNA SIGNATURE AETNA SIG [id number] Care Teams Air Carrier Operations Inspector Relationship Specialty Start Date End Date Raj Kirby MD PCP - General Family Medicine 02/06/19
--- OUTSIDE RECORDS SUMMARY | 2024-11-20 08:16 | XMS_ITS | Clinical Summary ---
Author Organization [facility] Address [address] [place] [address] Care Team Providers Care Cp Bleacher Operator Name Role Phone Raj Kirby MD Primary Care Provider + Source Comments [facility],non-owned Affiliates and Associated Physician Practices is amultiple site organization consisting of ambulatory clinics and hospital sitesin [place], [place], [place] and [place]. This disclosure is being madepursuant to the Care Everywhere program and may not contain all information available regarding this patient. Last updated 17.[facility] Allergies No known active allergies Medications * [...] on file Legal Sex Female 9:43 AM FIRE INVESTIGATION MANAGER Gender Identity Not on file Sexual Orientation Not on file Last Filed Vital Signs Vital Sign Reading Time Taken Comments Blood Pressure - - Pulse - - Temperature - - Respiratory Rate - - Oxygen Saturation - - Inhaled Oxygen Concentration - - Weight 74.4 kg (164 lb) 04/26/2019 8:30 AM FIRE INVESTIGATION MANAGER Height 167.6 cm (5' 6) 04/26/2019 8:30 AM FIRE INVESTIGATION MANAGER Body Mass Index 26.47 04/26/2019 8:30 AM FIRE INVESTIGATION MANAGER Plan of Treatment Health Maintenance Due Date [...] this topic Insurance AETNA AETNA Care Teams Cp Bleacher Operator Relationship Specialty Start Date End Date Raj Kirby MD [address] [address] PCP - General 03/02/19
== END 2024-11-20 08:06 | disposition home or self-care (01) ==
PROVIDERS: PCP Family Medicine Adolescent Medicine; Visit Provider Physician Assistant Surgical
DX: S62.612D Displaced fracture of proximal phalanx of right middle finger, subsequent encounter for fracture with routine healing (principal); X58.XXXD Exposure to other specified factors, subsequent encounter
CPT/HCPCS: 73130

== ENCOUNTER 2024-12-04 08:01 | Outpatient (CLI) | payer OTHER, SELFPAY ==
--- NOTE | ~2024-12-04 | XR_ITS ---
EXAMINATION: XR hand RT min 3V, 12/04/2024 8:05 CDT HISTORY: S62.612A - Displaced fracture of proximal phalanx of righ... COMPARISON: No comparisons available. Findings: Fixation proximal phalanx third digit with healing fracture. No significant degenerative changes. Soft tissues unremarkable. Impression: Postsurgical changes Reviewed, dictated and finalized at location P. Impression: Postsurgical changes
--- NOTE | ~2024-12-04 | XR_ITS ---
EXAMINATION: XR finger 3rd RT min 2V, 12/04/2024 9:50 CDT HISTORY: S62.612A - Displaced fracture of proximal phalanx of righ... COMPARISON: No comparisons available. Findings: There is a slightly displaced oblique fracture of the proximal phalanx with minimal callus formation noted. No significant degenerative changes. Soft tissues unremarkable. Impression: Fractures detailed above Reviewed, dictated and finalized at location P. Impression: Fractures detailed above
--- OUTSIDE RECORDS SUMMARY | 2024-12-04 08:14 | XMS_ITS | Clinical Summary ---
Author Organization [facility] Address [address] [place] [address] Care Team Providers Care Curatorial Assistant Name Role Phone Raj Kirby MD Primary [...] Assessment & Plan (03/05/2019 10:52 AM MANAGER COMBINATION): Avoid ear cleaning techniques, if ears feel full or hearing loss occurs, please call Assessment & Plan (02/08/2019 9:26 AM MANAGER COMBINATION): Cefdinir with a meal daily Probiotic at [...] file Legal Sex Female 4:56 AM MANAGER COMBINATION Gender Identity Not on file Sexual Orientation Not on file Obstetrics History Last Filed Vital Signs Vital Sign Reading Time Taken Comments Blood Pressure 114/76 03/05/2019 10:39 AM MANAGER COMBINATION Pulse 66 03/05/2019 10:39 AM MANAGER COMBINATION Temperature 36.7 C (98 F) 03/05/2019 10:39 AM MANAGER COMBINATION Respiratory Rate - - Oxygen Saturation 100% 06/16/2016 2:17 PM CDT Inhaled Oxygen Concentration - - Weight 73 kg (161 lb) 03/05/2019 10:39 AM MANAGER COMBINATION Height 167.6 cm (5' 6) 03/05/2019 10:39 AM MANAGER COMBINATION Body Mass Index 25.99 03/05/2019 10:39 AM MANAGER COMBINATION Plan of Treatment Not on file Insurance [facility] AETNA SIGNATURE AETNA SIG [id number] Care Teams Curatorial Assistant Relationship Specialty Start Date End Date Raj Kirby MD PCP - General Family Medicine 02/06/19
--- OUTSIDE RECORDS SUMMARY | 2024-12-04 08:14 | XMS_ITS | Clinical Summary ---
Author Organization [facility] Address [address] [facility] [place] [address] Care Team Providers Care Cook School Cafeteria Name Role Phone Raj Kirby MD Primary Care Provider + Source Comments [facility],non-owned Affiliates and Associated Physician Practices is amultiple site organization consisting of ambulatory clinics and hospital sitesin [place], [place], [place] and [place]. This disclosure is being madepursuant to the Care Everywhere program and may not contain all information available regarding this patient. Last updated 17.[facility] Allergies No known active allergies Medications * [...] on file Legal Sex Female 9:43 AM GRAVITY PROSPECTOR Gender Identity Not on file Sexual Orientation Not on file Last Filed Vital Signs Vital Sign Reading Time Taken Comments Blood Pressure - - Pulse - - Temperature - - Respiratory Rate - - Oxygen Saturation - - Inhaled Oxygen Concentration - - Weight 74.4 kg (164 lb) 04/26/2019 8:30 AM GRAVITY PROSPECTOR Height 167.6 cm (5' 6) 04/26/2019 8:30 AM GRAVITY PROSPECTOR Body Mass Index 26.47 04/26/2019 8:30 AM GRAVITY PROSPECTOR Plan of Treatment Health Maintenance Due Date [...] patient's age to complete this topic Insurance * Guarantor: Vanesa Hope Account Type Relation to Patient Date of Phone Billing Address Personal/Family Self 1960 [address] [place] [address] AETNA AETNA Care Teams Cook School Cafeteria Relationship Specialty Start Date End Date Raj Kirby MD [address] [address] PCP - General 03/02/19
== END 2024-12-04 08:02 | disposition home or self-care (01) ==
PROVIDERS: PCP Family Medicine Adolescent Medicine; Visit Provider Physician Assistant Surgical
DX: S62.612A Displaced fracture of proximal phalanx of right middle finger, initial encounter for closed fracture (principal); X58.XXXA Exposure to other specified factors, initial encounter
CPT/HCPCS: 73130; 73140

== ENCOUNTER 2025-01-24 13:24 | Outpatient (CLI) | payer OTHER, SELFPAY | END 2025-01-24 13:25 | disposition home or self-care (01) | LOC: ANHAUDASC 13:26 | PROVIDERS: PCP Family Medicine; Visit Provider Family Medicine | DX: H90.41 Sensorineural hearing loss, unilateral, right ear, with unrestricted hearing on the contralateral side (principal); H90.72 Mixed conductive and sensorineural hearing loss, unilateral, left ear, with unrestricted hearing on the contralateral side | CPT/HCPCS: 92557; 92567 ==